=== PATIENT | female | born 1950 | race Caucasian/White ===

== ENCOUNTER → 2017-02-13 | Outpatient (CLI) | payer MEDICARE ==
[~2017-02-13] MED LIST: ALLEGRA PO; CALCIUM PO; CELEBREX PO; CERTAGEN PO; DIOVAN HCT 160-1 TAB PO; DIOVAN HCT 80/11 TAB PO; DRYSOL; EFFEXOR PO; EFFEXOR XR PO; FLONASE16 GM; PRAVACHOL PO; SYNTHROID PO; VAGIFEM25 MCG PV; ZINC PO
--- NOTE | ~2017-02-13 | MY11 ---
[facility] A Service [facility] RADIOLOGY TEXT RESULTS PATIENT: CARMINA MARTINEZ LOCATION: [facility] : 46 UNIT #: [id number] AGE: [address]: Meagan Whitman MD SEX: F ORDER DR: [id number] [facility] [address] [place], [place] [address] [id number] O MR#: [id number] Acc #: [id number] NAME: CARMINA MARTINEZ : 1950 SEX: F STUDY DATE/TIME: 02/13/2017 13:02 UNIT: [facility] ROOM: STUDY DESCRIPTION: MY Mammogram Screening Dig [place] Attending Physician: Meagan Whitman M.D. Referring Physician: Meagan Whitman M.D. Ordering Physician: Meagan Whitman M.D. Primary Care Physician: Roderick Asher M.D. MEDICAL IMAGING REPORT This report is preliminary unless electronic signature is present EXAM Bilateral digital screening mammogram with CAD 02/13/2017 INDICATIONS 66-year-old female for routine screening. No reported problems and no personal or family history of breast cancer. 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 TECHNIQUE CC and MLO views of the breasts were obtained and reviewed with a FDA-approved CAD device. COMPARISON 02/08/2016, 11/20/2014, 09/05/2013. COMMENTS Breast parenchyma is heterogeneously dense. This degrades sensitivity screening mammography. The pattern is unchanged. Scar markers are present bilaterally. There is no new dominant nodule or mass in either breast. No new suspicious clustered microcalcifications. Scattered benign-appearing diffuse calcifications bilaterally, similar to the prior studies. IMPRESSION 1. Benign screening mammogram. Followup recommended. BIRADS: 2 Benign Finding. Patients over the age of 40 are entered into a reminder system with target due date for the next mammogram. A result letter will also be sent to the patient. [facility] A Service [facility] RADIOLOGY TEXT RESULTS PATIENT: CARMINA MARTINEZ LOCATION: [facility] : 46 UNIT #: [id number] AGE: [address]: Meagan Whitman MD SEX: F ORDER DR: Dictated by... Quincy Jacques M.D. THIS IS AN ELECTRONICALLY VERIFIED REPORT Quincy Jacques M.D. at 02/16/2017 7:31 AM MEENU/alessandra TD: 02/13/2017 20:44 JOB #: [id number] MEDICAL IMAGING REPORT Page 1 of 1 COPY
== END | disposition home or self-care (01) ==
LOC: CWCC 12:52
DX: Z12.31 Encounter for screening mammogram for malignant neoplasm of breast (principal); Z98.890 Other specified postprocedural states
CPT/HCPCS: G0202

== ENCOUNTER → 2017-05-27 | Outpatient (CLI) | payer MEDICARE ==
--- NOTE | ~2017-05-27 | US24 ---
[facility] A Service of [facility] RADIOLOGY TEXT RESULTS PATIENT: CARMINA MARTINEZ LOCATION: [facility] : 46 UNIT #: [id number] AGE: [address]: Christian Jeronimo MD SEX: F ORDER DR: [id number] [facility] [address] [place], [place] [address] [id number] O MR#: [id number] Acc #: [id number] NAME: CARMINA MARTINEZ : 1950 SEX: F STUDY DATE/TIME: 05/27/2017 9:01 UNIT: [facility] ROOM: STUDY DESCRIPTION: US Breast Unilateral Attending Physician: Christian Jeronimo M.D. Referring Physician: Christian Jeronimo M.D. Ordering Physician: Christian Jeronimo M.D. Primary Care Physician: Meagan Whitman M.D. MEDICAL IMAGING REPORT This report is preliminary unless electronic signature is present EXAM Left breast ultrasound 05/27/2017. INDICATIONS Nipple discoloration which is worsening over time. No discharge. TECHNIQUES Sonographic evaluation was performed of the left periareolar breast. COMPARISON Comparison made with mammogram 02/13/1970. FINDINGS Current images demonstrate some mild duct ectasia behind the nipple. Additionally, there is a mildly complex cyst measuring about 8 mm in size. No definitive subareolar mass is seen. On physical exam, the patient's nipple does demonstrate some dark discoloration. Consider punch biopsy of this area. These findings and recommendations were discussed with the patient at the time of her examination. IMPRESSION Subareolar duct ectasia with a small cyst. No clearly suspicious lesion identified. Consider skin punch biopsy of the darkened area involving the left nipple. BIRADS: 2 Benign findings. Dictated by... Herbert Smallwood Jr., M.D. THIS IS AN ELECTRONICALLY VERIFIED REPORT Herbert Smallwood Jr., M.D. at 05/27/2017 4:45 PM RLK/gz [facility] A Service of [facility] RADIOLOGY TEXT RESULTS PATIENT: CARMINA MARTINEZ LOCATION: [facility] : 46 UNIT #: [id number] AGE: [address]: Christian Jeronimo MD SEX: F ORDER DR: TD: 05/27/2017 14:05 JOB #: [id number] MEDICAL IMAGING REPORT Page 1 of 1 COPY
== END | disposition home or self-care (01) ==
LOC: CWCC 08:46
DX: N64.59 Other signs and symptoms in breast (principal); N60.42 Mammary duct ectasia of left breast; N60.02 Solitary cyst of left breast
CPT/HCPCS: 76641